=== PATIENT | female | born 1980 | race Caucasian/White ===

== ENCOUNTER 2019-05-28 10:39 | Emergency (ER) | payer SELFPAY ==
--- NOTE | ~2019-05-28 | XR_ITS ---
EXAMINATION: XR pelvis 1-2V INDICATION: Pain after fall TECHNIQUE: AP view the pelvis is obtained on two radiographs. COMPARISON: CT, 08/03/2014 FINDINGS: Bone alignment is normal. There is no fracture. There are phleboliths of the pelvis. A bone island is noted in the left iliac wing. There is degenerative change at the pubic symphysis. IMPRESSION: 1. No acute osseous abnormality. Reviewed, dictated and finalized at location B.
[2019-05-28 11:02] VITALS: BP 139/87; PULSE 87; RESP 18; O2SAT 98
--- NOTE | 2019-05-28 11:04 | ED.BACK ---
HPI - Back Pain/Injury General Chief Complaint: Back Pain/Injury Stated Complaint: Fell and hurt tail bone Time Seen by Provider: 05/28/19 11:04 Source: patient Mode of arrival: ambulatory Limitations: no limitations History of Present Illness HPI Narrative: 39-year-old woman comes in today complaining of low back and tailbone pain that started 3 days ago after she fell down some stairs while carrying boxes. Patient states that she has had pain radiating to both hips since. It is painful to sit. She also has tenderness palpation over her tailbone. She denies other injuries or loss of consciousness. She has been taking anti-inflammatories for her discomfort however she is still having a significant amount of pain. She denies numbness and weakness in her lower extremities. MD elicited complaint: back injury and fall Onset (ago): day(s) (3) Timing: constant Severity: moderate Quality: sharp and aching Location: lumbar spine and sacrum Radiation: other ( To the hips) Exacerbating factors: movement and sitting upright Relieving factors: none Context: fall Treatments prior to arrival: NSAIDS Related Data Allergies Allergy/AdvReac Type Severity Reaction Status Date / Time pseudoephedrine Allergy Intermediate HIVES Verified 02/03/15 10:36 diphenhydramine Allergy Mild Verified 02/03/15 10:36 Review of Systems Constitutional: Constitutional: Denies chills and Denies fever(s) Eyes: Eyes: Denies change in vision and Denies photophobia ENT: Denies dysphagia, Denies nasal congestion and Denies sore throat Cardiovascular: Cardiovascular: Denies chest pain and Denies radiating jaw, neck or arm pain Gastrointestinal: Gastrointestinal: Denies abdominal pain, Denies diarrhea, Denies nausea and Denies vomiting Genitourinary: Genitourinary: Denies hematuria, Denies nocturia, Denies dysuria and Denies urinary incontinence Musculoskeletal: Musculoskeletal: Reports as per HPI Integumentary/Breasts: Skin/Breast: Denies pruritus, Denies erythema and Denies rash Neurologic: Denies vertigo, Denies dizziness and Denies syncope Hematologic/Lymphatic: Hematologic/Lymphatic: Denies easy bleeding and Denies easy bruising Allergic/Immunologic: Allergic/Immunologic: Denies lip swelling and Denies wheezing PMFSH Surgical History Surgical History H/O section H/O tubal ligation Social History Social History (Updated 05/28/19 @ 12:06 by Sergo Murillo MD) Smoking status: Never smoker Alcohol intake: never Substance use: never Living arrangements: with family Gender identity (if verbalized by the patient): Female Exam Const: General: alert Nutritional Appearance: obese Orientation/consciousness: patient oriented x3 Limitations: no limitations Other: moderate acute distress. HENMT: Mouth: Yes Normal oral and palatal mucosa present and Yes moist mucous membranes Throat: posterior oropharynx normal and uvula midline Eyes: Conjunctivae: conjunctivae normal Pupils: Equal, round and reactive pupils present EOM: EOMs intact bilaterally Resp: Effort & Inspection: normal respiratory effort and not labored Auscultation: clear to auscultation bilaterally, no rales, no rhonchi and no wheezes Cardio: Rate: regular rate Rhythm: regular rhythm Heart sounds: no murmurs Back/Spine/Pelvis: Other: Tenderness palpation over the sacral spine and the tailbone. There is some bruising over the right SI joint. No abnormal contour, step-off or swelling. No tenderness over the thoracic spine, the greater trochanters, or the reanna. Skin: General skin exam: normal color, no jaundice and no pallor Rashes: no rashes Neuro: General: patient oriented x3, moves all extremities, no meningeal signs, no focal motor deficits and CN's II-XI intact bilaterally Other: 2+ DTRs at the patellar tendons bilaterally and 1+ DTRs at the calcaneal tendons bilaterally. normal distal n
[2019-05-28] MEDS: KETOROLAC (*BKC) 60 MG/2 ML VIAL IM (11:26)
[2019-05-28 12:01] VITALS: BP 127/76
--- NOTE | 2019-05-28 12:12 | PC.NURSE ---
denies numbness or tingling of extremities.
== END 2019-05-28 12:02 | disposition home or self-care (01) ==
PROVIDERS: Emergency Provider Emergency Medicine
DX: S39.012A Strain of muscle, fascia and tendon of lower back, initial encounter (principal); S39.92XA Unspecified injury of lower back, initial encounter; W10.9XXA Fall (on) (from) unspecified stairs and steps, initial encounter
CPT/HCPCS: 72170; 96372; 99283; J1885

== ENCOUNTER 2019-08-12 09:58 | Outpatient (CLI) | payer MEDICAID, SELFPAY ==
--- NOTE | ~2019-08-12 | XR_ITS ---
XR lumbar spine 2-3V 08/12/2019 11:05 Indication: Low back pain for months. Procedure: 3 views of the lumbar spine Comparison: No prior studies for comparison. Findings: Vertebral body and disc heights are preserved. No fracture or traumatic malalignment. No ev idence for spondylolysis or spondylolisthesis. Pedicles intact. Sacral foramen are symmetric. Impression: 1: No significant abnormality of the lumbar spine. Reviewed, dictated and finalized at location A. Impression: 1: No significant abnormality of the lumbar spine.
--- NOTE | ~2019-08-12 | XR_ITS ---
EXAMINATION: XR foot RT min 3V EXAM DATE: 08/12/2019 11:05 INDICATION: No known recent injury provided at this time. Pain of the right foot. TECHNIQUE: Right foot dorsoplantar, lateral and oblique projections obtained and reviewed. Compariso n is made to prior examination from 09/25/2010. FINDINGS: Right metatarsal bones unremarkable. Small posterior calcaneal spur. There is prominent b monserrat productive change at the superolateral aspect calcaneocuboid articulation, calcaneal beak suspect ed to be from underlying partial coalition. Consider this as possible etiology for patient's symptoms . There are no acute fractures or dislocations identified. There is no subcutaneous gas. The soft t issue is unremarkable. There are no radiopaque foreign bodies. IMPRESSION: 1. 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 2. Small posterior calcaneal spur. Reviewed, dictated and finalized at location A. IMPRESSION: 1. 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 2. Small posterior calcaneal spur.
--- NOTE | ~2019-08-12 | XR_ITS ---
XR_CERV2-3V_CR 08/12/2019 11:05 Indication: Neck pain Procedure: 3 views of the cervical spine Comparison: No prior studies for comparison. Findings: Straightening of cervical lordosis. Vertebral body and disc spaces are preserved. No prever tebral soft tissue swelling. Odontoid process is unremarkable. Impression: 1: No significant abnormality of the cervical spine. Reviewed, dictated and finalized at location A. Impression: 1: No significant abnormality of the cervical spine.
== END 2019-08-12 09:59 | disposition home or self-care (01) ==
PROVIDERS: PCP Nurse Practitioner Family; Visit Provider Nurse Practitioner Family
DX: M54.2 Cervicalgia (principal); M79.671 Pain in right foot; M54.6 Pain in thoracic spine; G89.29 Other chronic pain
CPT/HCPCS: 72040; 72100; 73630

== ENCOUNTER 2019-08-14 09:34 | Outpatient (CLI) | payer MEDICAID, SELFPAY ==
[2019-08-14 09:58] LABS: Add Urine Microscopic? NO; Appearance Urine Clear (Clear); Bilirubin Urine Negative (Negative); Blood Urine Negative (Negative); Color Urine Yellow (Yellow); Glucose Urine UA Negative (Negative); Ketones Urine Negative (Negative); Leukocyte Esterase Ur Negative LEU/UL (Negative); Nitrate Urine Negative (Negative); Protein Urine Negative (Negative); Specific Grav Ur 1.025 (1.010-1.020); Urobilinogen Urine 0.2 mg/dL (0.2-1.0)
[2019-08-14 10:45] LABS: Alanine Aminotransferase 16 U/L (14-59); Albumin Level 3.6 g/dL (3.4-5.0); Alkaline Phosphatase 63 U/L (46-116); Anion Gap 12.3 mmol/L (7-16); Aspartate Amino Transferase 13 U/L (15-37); Bilirubin,Total 0.3 mg/dL (0.00-1.00); Blood Urea Nitrogen 7 mg/dL (7-18); Calcium 8.8 mg/dL (8.5-10.1); Carbon Dioxide 27 mmol/L (21-32); Chloride 103 mmol/L (98-108); Cholesterol 184 mg/dL (0-200); Estimated Glomerular Filt Rate > 60; Glucose 100 mg/dL (70-99); HDL Direct 73 mg/dL (40-60); LDL Cholesterol Calculated 101 mg/dL (<130); Osmolality Calculated 284 mOsm/kg (285-295); Potassium 4.3 mmol/L (3.5-5.1); Sodium 138 mmol/L (136-145); Thyroid Stimulating Hormone 1.58 uIU/mL (0.36-3.74); Total Protein 6.8 g/dL (6.4-8.2); Triglycerides 48 mg/dL (0-150)
== END 2019-08-14 09:35 | disposition home or self-care (01) ==
PROVIDERS: PCP Nurse Practitioner Family; Visit Provider Nurse Practitioner Family
DX: Z12.4 Encounter for screening for malignant neoplasm of cervix (principal); Z13.89 Encounter for screening for other disorder; Z00.00 Encounter for general adult medical examination without abnormal findings
CPT/HCPCS: 36415; 80053; 80061; 81003; 84443; 87491; 87591; 87624; 87625; 88141; 88175; G0145

== ENCOUNTER 2019-08-14 12:48 | Outpatient (RCR) | payer MEDICAID, OTHER, SELFPAY ==
--- NOTE | 2019-08-14 15:54 | PTOPEVAL ---
Thank you for referring Heide Fan to [facility]. Please review, sign, date and return this plan of care JAKE. I agree with and certify that the following plan of care is medically necessary. Referring Physician Date Admitting Provider: Attending Provider: You Lee DO Referring Provider: *PT Outpatient Evaluation Start: 08/14/19 15:07 Freq: Status: Active Protocol: Document 08/14/19 15:08 TIM (Rec: 08/14/19 15:53 TIM [id number]) Therapy Assessment Status Assessment Status Assessment Status Evaluation Outpatient Past Medical History Reproductive History Hx Section Yes Hx Tubal Ligation Yes Evaluation Information Problem Diagnosis neck pain, back pain, and right heel pain Subjective Information Pt. reports that she developed Query Text:As Reported By Patient/ foot pain in March. she Family reports that foot pain became gradually. She states that she underwent xray which revealed a bone spur. She reports that pain is present in both sitting and standing. She states that in May she slipped and fell while carrying a box down steps. She reports she had a bruise, but xray was negative. She reports that she cannot walk for long periods not only due to foot pain but also because of back pain. She reports she does also have neck pain and stiffness. She will get occassional numbness into the u.e. She reports that her goal for therapy is to be able to move without pain. Diagnostic Tests X-Rays For This Problem Yes Prior Level of Function Activity Level (Last 3 Months) Occupation unemployed Hand Dominance Right Activity of Daily Living Ability Independent Indoor/Home Mobility Independent Community Mobility Independent Stairs Ability Independent Functional Cognition (Planning, Shopping Independent , Taking Medications) Cooking Yes Cleaning Yes Laundry Yes Shopping Yes Driving Yes Pain Assessment Pain Sca
--- NOTE | 2019-09-02 17:06 | PCPTNOTE ---
09/02/19-pt cancelled today's apt, no reason stated. HM
== END 2019-09-10 10:33 | disposition home or self-care (01) ==
LOC: CHSPT 12:48
PROVIDERS: PCP Family Medicine; Visit Provider Family Medicine
DX: M54.2 Cervicalgia (principal); M54.9 Dorsalgia, unspecified; M79.671 Pain in right foot
CPT/HCPCS: 36415; 80053; 80061; 81003; 84443; 87491; 87591; 87624; 87625; 88141; 88175; 97014; 97110; 97140; 97162; G0145; G0283

== ENCOUNTER 2019-09-09 12:20 | Outpatient (CLI) | payer OTHER, SELFPAY ==
--- NOTE | ~2019-09-09 | MM_ITS ---
EXAMINATION: MM screening kate BI w pallavi HISTORY: Screening mammogram TECHNIQUE: Craniocaudal and mediolateral oblique 3-D tomosynthesis images were obtained and synthetic 2-D images were generated. CAD analysis was submitted and interpreted. COMPARISON: No prior mammogram is available for comparison at this institution. BREAST PARENCHYMAL COMPOSITION: There are scattered areas of fibroglandular density. FINDINGS: RIGHT BREAST: There is a 5 mm mass in the posterior third of the upper outer quadrant of the breast 1 2 cm from the nipple. LEFT BREAST: There is no evidence of suspicious mass, calcification, or architectural distortion to s uggest malignancy. IMPRESSION: 1. Right breast mass which may represent the patient's baseline however no comparison is currently av ailable. 2. Comparison with prior mammograms is necessary. BI-RADS Category 0: Incomplete: Needs comparison with prior mammograms. Reviewed, dictated and finalized at location A. IMPRESSION: 1. Right breast mass which may represent the patient's baseline however no comp arison is currently available. 2. Comparison with prior mammograms is necessary. BI-RADS Category 0: Incomplete: Needs comparison with prior mammograms.
== END 2019-09-09 12:21 | disposition home or self-care (01) ==
PROVIDERS: PCP Nurse Practitioner Family; Visit Provider Nurse Practitioner Family
DX: Z12.31 Encounter for screening mammogram for malignant neoplasm of breast (principal)
CPT/HCPCS: 77063; 77067

== ENCOUNTER 2019-09-15 10:19 | Outpatient (CLI) | payer OTHER, SELFPAY ==
--- NOTE | ~2019-09-15 | MMUS_ITS ---
EXAMINATION: MM diagnostic kate RT w pallavi, US breast RT limited HISTORY: Right breast mass on screening mammogram TECHNIQUE: Additional 3-D tomosynthesis images of the right breast were performed and synthetic 2-D i mages were generated. CAD analysis was submitted and interpreted. High resolution limited right breas t ultrasound was performed. COMPARISON: 09/09/2019 FINDINGS: MAMMOGRAPHIC FINDINGS: There is a 6 mm oval, circumscribed, equal density mass in the posterior third of the upper outer whitney drant of the breast at the 10:00 location 12 cm from the nipple. No suspicious architectural distorti on or calcification are identified. ULTRASOUND: There is a 6 mm mass at the 10:00 location 4 cm from the nipple which has sonographic features of an intramammary lymph node. No suspicious cystic or solid mass is identified. IMPRESSION: 1. Intramammary lymph node in the upper outer quadrant of the right breast. No mammographic or sonogr aphic evidence of malignancy. 2. Recommend routine screening mammography in one year. BI-RADS Category 2: Benign finding(s). Reviewed, dictated and finalized at location A. IMPRESSION: 1. Intramammary lymph node in the upper outer quadrant of the right breast. No mammographic or sonographic evidence of malignancy. 2. Recommend routine screening mammography in one year. BI-RADS Category 2: Benign finding(s).
== END 2019-09-15 10:20 | disposition home or self-care (01) ==
LOC: CHSIMG 10:20
PROVIDERS: PCP Nurse Practitioner Family; Visit Provider Nurse Practitioner Family
DX: N63.10 Unspecified lump in the right breast, unspecified quadrant (principal)
CPT/HCPCS: 76642; 77061; 77065; G0279

== ENCOUNTER 2019-10-20 00:17 | Outpatient (CLI) | payer OTHER, SELFPAY ==
[2019-10-20 20:24] LABS: SARS-CoV-2 RNA PCR Negative
== END 2019-10-20 00:18 | disposition home or self-care (01) ==
LOC: ANHCOVIDDT 00:17
PROVIDERS: PCP Nurse Practitioner Family; Visit Provider Student in an Organized Health Care Education/Training Program
DX: Z01.812 Encounter for preprocedural laboratory examination (principal); Z20.828 Contact with and (suspected) exposure to other viral communicable diseases
CPT/HCPCS: 87635; C9803; U0003

== ENCOUNTER 2019-10-22 01:47 | Day surgery (SDC) | payer OTHER, SELFPAY ==
[2019-10-06 12:58] VITALS: BMI 35.9
--- NOTE | 2019-10-21 14:50 | PM.IMHP ---
H&P: HPI History of Present Illness Date/Time: 10/21/19 14:50 Chief complaint: High Grade cells with Dysplasia Narrative: Heide Fna is a 39 year old female with a history of KAZ 3 on recent pap smear. Pt was seen by PCP and had a pap on 08/14/19 that showed HGSIL, KAZ 2 and KAZ 3. Prior to this pap smear, pt states that prior pap was 4 years ago and was within normal limits. She states that pap smear was collected during hospitalization at [facility] in [place], [place]. Pt states she was hospitalized for 3 weeks for an ovarian infection, possible PID. Denies any family history of cervical, endometrial, or ovarian cancer. Maternal grandmother had breast cancer. She does smokes >1/2ppd. Discussion had with patient regarding colposcopy vs. immediate LEEP. Given high grade dysplasia on pap smear, decision made to proceed directly with excision procedure. Patient reports feeling well today. Review of Systems Review of Systems: All systems reviewed & are unremarkable except as noted in HPI and below Constitutional: Constitutional: Reports as per HPI, Reports no additional constitutional complaints, Denies chills, Denies fever(s), Denies headache(s) and Denies night sweats Eyes: Eyes: Reports as per HPI and Reports no additional eye complaints ENT: Reports system reviewed and no additional complaints, except as documented, Reports as per HPI, Reports Normal hearing present and Denies headache(s) Cardiovascular: Cardiovascular: Reports as per HPI, Reports no additional cardiovascular complaints, Denies chest pain and Denies dyspnea Respiratory: Respiratory: Reports as per HPI, Reports no additional respiratory complaints, Denies cough and Denies dyspnea Gastrointestinal: Gastrointestinal: Reports as per HPI, Reports no additional gastrointestinal complaints, Denies abdominal pain, Denies change in bowel habits, Denies change in stool character, Denies nausea and Denies vomiting Genitourinary: Genitourinary: Reports no additional female genitourinary complaints, Reports as per HPI, Denies abnormal vaginal bleeding, Denies genital lesions, Denies hot flashes, Denies dyspareunia, Denies pelvic pain, Denies sexual dysfunction, Denies urinary incontinence, Denies vaginal discharge, Denies vaginal dryness and Denies vaginal odor Musculoskeletal: Musculoskeletal: Reports no additional musculoskeletal complaints and Reports as per HPI Integumentary/Breasts: Skin/Breast: Reports system reviewed and no additional complaints, except as docu, Reports as per HPI, Denies breast pain and Denies nipple discharge Neurologic: Reports system reviewed and no additional complaints, except as documented, Reports as per HPI, Reports Normal hearing present and Denies headache(s) Psychiatric: Psychiatric: Reports no additional psychiatric complaints, Reports as per HPI, Denies anxiety and Denies depression Endocrine: Endocrine: Reports no additional endocrine complaints and Reports as per HPI Hematologic/Lymphatic: Hematologic/Lymphatic: Reports no additional hematologic/lymphatic complaints and Reports as per HPI Allergic/Immunologic: Allergic/Immunologic: Reports no additional allergic/immunologic complaints and Reports as per HPI PMFSH Surgical History Surgical History H/O section H/O tubal ligation Family History Family History Mother Breast cancer COPD (chronic obstructive pulmonary disease) Diabetes mellitus Cerebrovascular accident Father Chronic back pain Hypertension High cholesterol Social History Social History Smoking packs per day: 0.5 Smoking cigarettes per day: 10.0 Years smoked: 20 Smoking pack-years: 10.00 Smoking status: Current every day smoker Tobacco type: cigarettes Alcohol intake: current Drinks per week: 2 Substance use: current Substance use
[2019-10-22] MEDS: LACTATED RINGERS 1,000 ML 30 ML IV CONT (08:39)
[2019-10-22] MEDS: ACETAMINOPHEN 500 MG TABLET 1000 MG PO (08:40)
--- NOTE | 2019-10-22 08:58 | WPDHPUPDATE1 ---
History and Physical Update Update Date/Time: 10/22/19 08:58 History and Physical has been reviewed, including an updated exam of the patient. There are NO changes in the patient's condition. Risks, benefits, and alternatives have been discussed and questions answered. Patient agrees to proceed with procedure.
[2019-10-22 09:14] VITALS: BP 137/82; PULSE 95; RESP 16; TEMP 37.4; O2SAT 97
--- NOTE | 2019-10-22 09:28 | WPDANESEPPF ---
Anes - Initial Pre Proc Eval Procedure: Operation Date: 10/22/19 10:00 Proposed Procedures p Loop Electrical Excision Procedure - Maya Urena MD Date/Time: 10/22/19 09:28 Surgeon: Maya Urena MD Pre Op Diagnosis: High Grade cells with Dysplasia Patient Data Age: 39 Gender: F Height: 5 ft 10 in Weight: 123.3 kg Last Vital Signs Temp 99.4 F 10/22/19 09:14 Pulse 95 10/22/19 09:14 Resp 16 10/22/19 09:14 BP 137/82 10/22/19 09:14 Pulse Ox 97 10/22/19 09:14 Allergies Allergy/AdvReac Type Severity Reaction Status Date / Time latex Allergy Severe Swelling Verified 10/22/19 08:25 pseudoephedrine Allergy Intermediate HIVES Verified 10/22/19 08:25 diphenhydramine Allergy Mild Hives Verified 10/22/19 08:25 Home Medications Medication Instructions Recorded Confirmed Type bupropion HCl 150 mg 24 hr tablet, 150 mg PO QAM 09/24/19 10/22/19 History extended release cyclobenzaprine 10 mg PO HS PRN 10/06/19 10/22/19 History diclofenac sodium 50 mg 50 mg PO TID PRN #45 tablet 10/08/19 10/22/19 Rx tablet,delayed release famotidine 20 mg tablet 20 mg PO BID #60 tablet 10/08/19 10/22/19 Rx Patient hx anesthesia problems: none Family hx anesthesia problems: none PMFSH Surgical History Surgical History H/O section H/O tubal ligation Family History Family History Mother Breast cancer COPD (chronic obstructive pulmonary disease) Diabetes mellitus Cerebrovascular accident Father Chronic back pain Hypertension High cholesterol Social History Social History Smoking packs per day: 1 Smoking cigarettes per day: 20.0 Years smoked: 20 Smoking pack-years: 20.00 Smoking status: Current every day smoker Tobacco type: cigarettes Alcohol intake: current Drinks per week: 1 Substance use: current Substance use type: marijuana Last use: 09/06/19 Gender identity (if verbalized by the patient): Female Spiritual care concerns: No Anes - Eval Final PreProcedure Day of Procedure 10/22/19 09:28 Patient weight: morbidly obese Heart: regular rate and rhythm Lungs: clear to auscultation Airway: Mallampati scale class II Neurological: alert and oriented Last oral intake: >/= 8 hours ASA classification: III Emergent: no Anesthetic plan: proceed Anesthesia type and monitoring: general GIVS and standard monitoring Informed Consent: The patient's anesthetic plan and its attendant risks and benefits were discussed with the patient/family/POA. Questions were solicited and answers provided to the satisfaction of the patient/family/POA.
--- NOTE | 2019-10-22 10:16 | PM.PROC ---
Procedure Note - Detailed Date of procedure: 10/22/19 Pre-op diagnosis: High Grade cells with Dysplasia Post-op diagnosis: same Procedure performed: Loop electrosurgical excision procedure Description of procedure: The patient was taken to the operating room where she self-transferred to the operating room table. She was placed in dorsal supine position. Anesthesia was administered and found to be adequate. The patient was repositioned in dorsal lithotomy position and prepped and draped in the usual sterile fashion. A coated bivalve speculum was inserted into the vagina and suction tubing was connected to the speculum. The cervix was well visualized. A paracervical block was performed with 1% lidocaine. 5 cc of lidocaine was administered on both sides for a total of 10 cc. Lugol's solution was applied across the entire surface of the cervix. A wide area of non uptake was noted circumferentially around the cervix. A wide loop was selected and connected to the electrical generator. This loop was used to excise a portion of the anterior surface of the cervix, including the cervical os. The specimen was removed and set aside. The loop was then used to excise the posterior surface of the cervix. Specimen was also set aside. An endocervical curettage was also performed. A rollerball was used to cauterize the entire excision site and margins of the excision bed. Excellent hemostasis was noted. The procedure was deemed complete. The vagina was dried and the speculum was removed. The anterior portion of the cervix was tagged at 12:00 with a suture and the posterior portion was tagged at 6:00. Specimen were prepared to be sent to pathology for analysis. The patient was cleansed and dried. She was taken out of the dorsal lithotomy position and awakened from anesthesia without difficulty. She was transported to the recovery room in stable condition. All sponge and instrument counts were correct at the end of the procedure. Anesthesia: MAC Surgeon: Maya Urena MD Estimated blood loss (mL): 5 IV fluids (mL): 600 Drains: No Packing: No Pathology: yes (portion of anterior cervix (stitch at 12:00), portion of posterior cervix (stitch at 6:00), endocervical curettings ) Complications: No immediate complications Condition: stable Disposition: same day Findings: Intraoperative findings: wide area of nonuptake noted circumferentially around cervix
[2019-10-22 10:20] VITALS: BP 87/51; PULSE 71; RESP 16; O2SAT 95
[2019-10-22 10:40] VITALS: BP 126/71; PULSE 77; RESP 16; O2SAT 97
[2019-10-22 11:00] VITALS: BP 117/76; PULSE 74; RESP 16
== END 2019-10-22 11:10 | disposition home or self-care (01) ==
PROVIDERS: PCP Nurse Practitioner Family; Visit Provider Student in an Organized Health Care Education/Training Program
PROC: 0UBC7ZZ Excision of Cervix, Via Natural or Artificial Opening (ICD-10-PCS; CPT 57522; principal; 2019-10-22 10:00)
DX: D06.0 Carcinoma in situ of endocervix (principal); N72 Inflammatory disease of cervix uteri; F17.210 Nicotine dependence, cigarettes, uncomplicated; F12.90 Cannabis use, unspecified, uncomplicated
CPT/HCPCS: 57522; 88305; 88307; A9270; J2250; J2704; J3010; J7120

== ENCOUNTER 2020-02-02 12:45 | Outpatient (CLI) | payer OTHER, SELFPAY | END 2020-02-02 12:46 | disposition home or self-care (01) | LOC: ANHSURGERY 12:47 | PROVIDERS: PCP Nurse Practitioner Family; Visit Provider Student in an Organized Health Care Education/Training Program | DX: Z01.812 Encounter for preprocedural laboratory examination (principal); D06.9 Carcinoma in situ of cervix, unspecified | CPT/HCPCS: 36415; 86850; 86900; 86901 ==

== ENCOUNTER 2020-02-06 02:04 | Outpatient (CLI) | payer OTHER, SELFPAY ==
[2020-02-06 19:10] LABS: SARS-CoV-2 RNA PCR Negative
== END 2020-02-06 02:05 | disposition home or self-care (01) ==
LOC: ANHCOVIDDT 02:04
PROVIDERS: PCP Nurse Practitioner Family; Visit Provider Student in an Organized Health Care Education/Training Program
DX: Z01.812 Encounter for preprocedural laboratory examination (principal); Z20.828 Contact with and (suspected) exposure to other viral communicable diseases
CPT/HCPCS: 87635; C9803; U0003

== ENCOUNTER 2020-02-09 00:53 | Day surgery (SDC) | payer OTHER, SELFPAY ==
[2020-01-27 09:27] VITALS: BMI 35.9
[2020-02-09] VITALS (14 sets, daily range): BP systolic 92–132; BP diastolic 60–84; PULSE 51–88; RESP 12–18; TEMP 36.4–36.6; O2SAT 93–100
--- NOTE | 2020-02-09 07:16 | WPDANESEPPF ---
Anes - Initial Pre Proc Eval Procedure: Operation Date: 02/09/20 13:00 Proposed Procedures p Laparoscopic Assisted Vaginal Hysterectomy with Bilateral Salpingectomy - Maya Urena MD Date/Time: 02/09/20 07:16 Surgeon: Maya Urena MD Pre Op Diagnosis: KAZ 3 Patient Data Age: 39 Gender: F Height: 1.78 m Weight: 113.5 kg Allergies Allergy/AdvReac Type Severity Reaction Status Date / Time latex Allergy Severe Swelling Verified 02/09/20 11:20 pseudoephedrine Allergy Intermediate HIVES Verified 02/09/20 11:20 diphenhydramine Allergy Mild Hives Verified 02/09/20 11:20 Home Medications Medication Instructions Recorded Confirmed Type No Home Medications 01/28/20 02/09/20 History Patient hx anesthesia problems: none Family hx anesthesia problems: none PMFSH Past Medical History Medical History (Updated 02/09/20 @ 07:17 by Freddie Horta MD) Acid reflux Anxiety Chronic back pain Depression Nicotine dependence, cigarettes, uncomplicated Obesity Ovarian cyst, right 2015 Pain of right heel Surgical History Surgical History H/O section H/O tubal ligation Family History Family History Mother Breast cancer COPD (chronic obstructive pulmonary disease) Diabetes mellitus Cerebrovascular accident Father Chronic back pain Hypertension High cholesterol Social History Social History Smoking packs per day: 1 Smoking cigarettes per day: 20.0 Years smoked: 20 Smoking pack-years: 20.00 Smoking status: Current every day smoker Tobacco type: cigarettes Alcohol intake: current Drinks per week: 1 Substance use: current Substance use type: marijuana Last use: 09/06/19 Gender identity (if verbalized by the patient): Female Spiritual care concerns: No Anes - Eval Final PreProcedure Day of Procedure 02/09/20 07:16 Patient weight: obese Heart: regular rate and rhythm Lungs: clear to auscultation and normal air movement Airway: Mallampati scale class II Neurological: alert and oriented Last oral intake: >/= 8 hours ASA classification: III Emergent: no Anesthetic plan: proceed Anesthesia type and monitoring: general ETT Informed Consent: The patient's anesthetic plan and its attendant risks and benefits were discussed with the patient/family/POA. Questions were solicited and answers provided to the satisfaction of the patient/family/POA.
[2020-02-09] MEDS: LACTATED RINGERS 1,000 ML 30 ML IV CONT ×2 (11:48→17:17)
[2020-02-09] MEDS: ACETAMINOPHEN 500 MG TABLET 1000 MG PO (11:49)
[2020-02-09] MEDS: KETOROLAC 15 MG/ML VIAL (*BKC) IV PUSH (11:50)
--- NOTE | 2020-02-09 12:25 | PM.IMHP ---
H&P: HPI History of Present Illness Date/Time: 02/09/20 12:25 Patient is a 39 year old woman with a history of high grade cervical dysplasia. She is s/p LEEP on 10/22/19. Pathology results showed positive endocervical margins and ECC also showed KAZ 3. Discussion had with patient regarding further management options, including more frequent surveillance and possible reexcision vs. definitive management with a hysterectomy. Patient declines surveillance and desires definitive management. She has had a BTL in the past and does not desire future fertility. Patient reports feeling well today without complaints. Chief complaint: KAZ 3 Narrative: Heide Fan is a 39 year old female Review of Systems Review of Systems: All systems reviewed & are unremarkable except as noted in HPI and below Constitutional: Constitutional: Reports as per HPI, Reports no additional constitutional complaints, Denies chills, Denies fever(s), Denies headache(s) and Denies night sweats Eyes: Eyes: Reports as per HPI and Reports no additional eye complaints ENT: Reports system reviewed and no additional complaints, except as documented, Reports as per HPI, Reports Normal hearing present and Denies headache(s) Cardiovascular: Cardiovascular: Reports as per HPI, Reports no additional cardiovascular complaints, Denies chest pain and Denies dyspnea Respiratory: Respiratory: Reports as per HPI, Reports no additional respiratory complaints, Denies cough and Denies dyspnea Gastrointestinal: Gastrointestinal: Reports as per HPI, Reports no additional gastrointestinal complaints, Denies abdominal pain, Denies change in bowel habits, Denies change in stool character, Denies nausea and Denies vomiting Genitourinary: Genitourinary: Reports no additional female genitourinary complaints, Reports as per HPI, Denies abnormal vaginal bleeding, Denies genital lesions, Denies hot flashes, Denies dyspareunia, Denies pelvic pain, Denies sexual dysfunction, Denies urinary incontinence, Denies vaginal discharge, Denies vaginal dryness and Denies vaginal odor Musculoskeletal: Musculoskeletal: Reports no additional musculoskeletal complaints and Reports as per HPI Integumentary/Breasts: Skin/Breast: Reports system reviewed and no additional complaints, except as docu, Reports as per HPI, Denies breast pain and Denies nipple discharge Neurologic: Reports system reviewed and no additional complaints, except as documented, Reports as per HPI, Reports Normal hearing present and Denies headache(s) Psychiatric: Psychiatric: Reports no additional psychiatric complaints, Reports as per HPI, Denies anxiety and Denies depression Endocrine: Endocrine: Reports no additional endocrine complaints and Reports as per HPI Hematologic/Lymphatic: Hematologic/Lymphatic: Reports no additional hematologic/lymphatic complaints and Reports as per HPI Allergic/Immunologic: Allergic/Immunologic: Reports no additional allergic/immunologic complaints and Reports as per HPI PMF Past Medical History Medical History Acid reflux Anxiety Chronic back pain Depression Nicotine dependence, cigarettes, uncomplicated Obesity Ovarian cyst, right 2015 Pain of right heel Surgical History Surgical History H/O section H/O tubal ligation Family History Family History Mother Breast cancer COPD (chronic obstructive pulmonary disease) Diabetes mellitus Cerebrovascular accident Father Chronic back pain Hypertension High cholesterol Social History Social History Smoking packs per day: 1 Smoking cigarettes per day: 20.0 Years smoked: 20 Smoking pack-years: 20.00 Smoking status: Current every day smoker Tobacco type: cigarettes Alcohol intake: current Drinks per week: 1 Substance us
--- NOTE | 2020-02-09 12:49 | WPDHPUPDATE1 ---
History and Physical Update Update Date/Time: 02/09/20 12:49 History and Physical has been reviewed, including an updated exam of the patient. There are NO changes in the patient's condition. Risks, benefits, and alternatives have been discussed and questions answered. Patient agrees to proceed with procedure. Plan is for a laparoscopic assisted vaginal hysterectomy and bilateral salpingectomy.
--- NOTE | 2020-02-09 12:51 | SUR.PREOP ---
Discussed delay with patient. Voices understanding. No needs at present.
[2020-02-09] MEDS: ceFAZolin 3 GM/D5W 100 ML 100 ML IVPB (13:41)
[2020-02-09] MEDS: BACITRACIN OINTMENT 15 GM TUBE 1 APPLIC TOPICAL (16:24)
[2020-02-09] MEDS: VASOPRESSIN INJ 20 UNITS/ML VIAL SUB-Q (16:24)
--- NOTE | 2020-02-09 17:21 | PM.PROC ---
Procedure Note - Detailed Date of procedure: 02/09/20 Pre-op diagnosis: KAZ 3 Post-op diagnosis: same Procedure performed: Laparoscopic assisted vaginal hysterectomy, bilateral salpingectomy, cystoscopy Description of procedure: The patient was taken to the operating room, where she self-transferred to the operating room table. She was placed in dorsal supine position. General anesthesia was administered and found to be adequate. The patient was repositioned in dorsal lithotomy position with the use of Ronny stirrups and arms were carefully tucked at her side. She was prepped and draped in the usual sterile fashion. A Cazares catheter was inserted using sterile technique and a minimal amount of concentrated urine was noted. A weighted speculum was inserted into the vagina. A right angle retractor was used to visualize the cervix. The cervix was well visualized and the anterior lip of the cervix was grasped with a single-tooth tenaculum. The cervix was serially dilated to accommodate the insertion of a HUMI uterine manipulator, which was inserted into the uterus for use during the laparoscopic portion of the case. The tenaculum, weighted speculum, and right angle retractor were removed. Business Continuity Director's gloves were changed. Attention was then turned to the patient's abdomen. A small amount of Exparel was injected along the fascia for postoperative pain management in the infraumbilical region. A small infraumbilical skin incision was made with a scalpel. While tenting the abdominal wall, a Veress needle was inserted into the abdominal cavity. Intra-abdominal confirmation was made with saline. Carbon dioxide tubing was connected to the Veress needle and insufflation was begun. The abdomen was insufflated to 15 mmHg. Once adequate pneumoperitoneum was achieved, the Veress needle was removed and a 5 mm Optiview trocar was then inserted into the abdominal cavity under direct visualization with the laparoscope. The trocar was removed. The laparoscope was introduced into the abdominal cavity through the sheath. The patient was placed in Trendelenburg position and a general survey was performed. An omental adhesion to the anterior abdominal wall was noted and visualization of the pelvic structures were obscured. For enhanced visualization and completion of the procedure, decision was made to place two 5mm accessory trocars, one in the left lower quadrant and one in the right lower quadrant. A small amount of Exparel was injected along the fascia in the right lower quadrant. A small skin incision was made with a scalpel and a 5 mm trocar was placed under direct visualization. Similarly, Exparel was injected in the left lower quadrant, a small skin incision was made, and an additional 5 mm trocar was placed under direct visualization. With the use of Endo Michelle and an atraumatic grasper, the filmy omental adhesions were cauterized and transected, completely freeing and detaching the omentum from the anterior abdominal wall. This allowed good visualization of pelvic structures and a quick survey of the pelvic cavity was completed. The uterus appeared normal with no gross abnormalities visualized. The ovaries appeared normal bilaterally as did the fallopian tubes. The fallopian tubes, however, were interrupted from a previous sterilization procedure. The anterior and posterior cul-de-sacs also appeared clean without evidence of significant scarring or adhesions. The ureters were well visualized bilaterally. With the use of the LigaSure bipolar cautery and transection device, the left round ligament was identified, grasped, cauterized, and transected. With careful dissection using the LigaSure device, the anterior leaf of the broad ligament was transected toward the midline, beginning the creation of the bladder flap. The left utero-ovarian ligament was then cauterized and transected to separate the left ovary and remnant of fallopian tube from the uterus. The remainder of the p
[2020-02-09] MEDS: fentaNYL CITRATE INJ (*CRX) 100 MCG/2 ML VIAL 25 MCG IV PUSH ×8 (17:35→18:10)
[2020-02-09] MEDS: LACTATED RINGERS 1,000 ML 150 ML IV CONT (19:21)
[2020-02-09] MEDS: IBUPROFEN IV 800 MG/200 ML 800 MG/200 ML BAG 400 MG IVPB (19:22)
[2020-02-09] MEDS: HYDROcodone/acetaminophen (*CRX) 10-325 MG TABLET 1 TAB PO (20:31)
--- NOTE | 2020-02-09 20:42 | PC.NURSE ---
Patient transferred to post room # 280 via bed. Oriented to unit, room, information board, and patient safety. Patient verbalizes understanding.
[2020-02-10 00:40] VITALS: BP 99/58; PULSE 65; RESP 16; TEMP 36.9; O2SAT 95
[2020-02-10] MEDS: HYDROcodone/acetaminophen (*CRX) 10-325 MG TABLET 1 TAB PO ×4 (00:40→13:38)
[2020-02-10] MEDS: IBUPROFEN IV 800 MG/200 ML 800 MG/200 ML BAG 400 MG IVPB (00:40)
[2020-02-10 03:50] VITALS: BP 91/50; PULSE 58; RESP 16; TEMP 36.6; O2SAT 96
[2020-02-10 04:13] LABS: Basophils Percent Auto 0.4 % (0.2-1.2); Eosinophils Percent Auto 0.1 % (0-4.4); Hemoglobin 10.7 g/dL (12.0-15.0); Immature Granulocyte Absolute 0.04 K/mm3 (0.00-0.031); Immature Granulocyte Percent A 0.4 % (0-0.5); Lymphocytes Absolute Auto 1.55 K/mm3 (0.9-3.2); Lymphocytes Percent Auto 15.2 % (18.3-44.2); Mean Corpuscular HGB Conc 34.5 g/dl (32-36); Mean Corpuscular Hemoglobin 30.7 pg (26-34); Mean Corpuscular Volume 89.1 fl (80-100); Mean Platelet Volume 9.9 fl (7.4-10.4); Monocytes Absolute Auto 0.7 K/mm3 (0.1-0.6); Monocytes Percent Auto 6.8 % (2.6-8.5); Neutrophils Absolute Auto 7.8 K/mm3 (1.3-6.7); Neutrophils Percent Auto 77.1 % (45.5-73.1); Platelet Count Result 282 k/mm3 (150-375); Red Blood Count 3.48 M/mm3 (4.2-5.4); Red Cell Distribution Width 13.7 % (11.5-14.5); White Blood Count 10.2 K/mm3 (4.5-10.0)
[2020-02-10 07:50] VITALS: BP 93/41; PULSE 65; RESP 16; TEMP 37; O2SAT 97
--- NOTE | 2020-02-10 07:51 | WPDANESPN ---
Anes - Prog Note Post-Op Date/Time: 02/10/20 07:51 Cardiovascular status: normal Respiratory status: normal Airway patency: baseline Mental status: baseline Post-Op hydration status: normal Vital Signs: Last Vital Signs Temp 36.6 C 02/10/20 03:50 Pulse 58 L 02/10/20 03:50 Resp 16 02/10/20 03:50 BP 91/50 L 02/10/20 03:50 Pulse Ox 96 02/10/20 03:50 Pain Score (VAS): 2 I/O: Intake & Output 02/09/20 02/09/20 02/10/20 15:59 23:59 07:59 Intake Total 600 1125 Output Total 100 1225 Balance 500 -100 Laboratory Tests 02/10/20 03:59 02/10/20 03:59 WBC 10.2 H RBC 3.48 L Hgb 10.7 L Hct 31.0 L MCV 89.1 MCH 30.7 MCHC 34.5 RDW 13.7 Plt Count 282 MPV 9.9 Immature Gran % (Auto) 0.4 Neut % (Auto) 77.1 H Lymph % (Auto) 15.2 L [place] % (Auto) 6.8 Eos % (Auto) 0.1 Baso % (Auto) 0.4 Lymph # (Auto) 1.55 [place] # (Auto) 0.7 H Eos # (Auto) 0.0 Baso # (Auto) 0.0 Abs Immat Gran (auto) 0.04 H Absolute Neuts (auto) 7.8 H Absolute Nucleated RBC 0.0 Nucleated RBC % 0.0 Post-procedural complaints: none Patient Feedback: Patient satisfied with anesthetic care.
--- NOTE | 2020-02-10 08:39 | PM.GYNPNOP ---
WORD PROCESSOR TECHNICIAN - A/P Assessment and plan (1) S/P laparoscopic assisted vaginal hysterectomy (LAVH): Code(s): Z90.710 - Acquired absence of both cervix and uterus Status: Acute Assessment and Plan: POD#1 s/p LAVH and b/l salpingectomy doing well will ensure adequate pain management with PO pain medication voiding trial anticipate dc home this afternoon Postoperative Procedures: Procedures Operation Date: 02/09/20 13:00 Actual Procedures Side Surgeon p Laparoscopic Assisted Vaginal Hysterectomy with Bilateral Salpingectomy, Cystoscopy Maya Urena MD Time Spent With Patient Time: Total time spent is greater than 50% in coordination of care (as documented) at patient's floor/unit and/or counseling patient: Time with patient: less than 15 minutes WORD PROCESSOR TECHNICIAN- PN:Subj Post-Op Subjective Date/time seen: 02/10/20 08:39 Patient doing well this AM. Reports moderate pain overnight that improved once she was able to change sleeping positions. Denies any headache, chest pain, SOB, N/V. Tolerating PO diet. Catheter recently removed. Has not yet voided. Vaginal packing removed. No bleeding. Ambulating without difficulty. Review of Systems Review of Systems: All systems reviewed & are unremarkable except as noted in HPI and below Constitutional: Constitutional: Reports as per HPI, Reports no additional constitutional complaints, Denies chills, Denies fever(s), Denies headache(s) and Denies night sweats Eyes: Eyes: Reports as per HPI and Reports no additional eye complaints ENT: Reports system reviewed and no additional complaints, except as documented, Reports as per HPI, Reports Normal hearing present and Denies headache(s) Cardiovascular: Cardiovascular: Reports as per HPI, Reports no additional cardiovascular complaints, Denies chest pain and Denies dyspnea Respiratory: Respiratory: Reports as per HPI, Reports no additional respiratory complaints, Denies cough and Denies dyspnea Gastrointestinal: Gastrointestinal: Reports as per HPI, Reports no additional gastrointestinal complaints, Denies abdominal pain, Denies change in bowel habits, Denies change in stool character, Denies nausea and Denies vomiting Genitourinary: Genitourinary: Reports no additional female genitourinary complaints, Reports as per HPI, Denies abnormal vaginal bleeding, Denies genital lesions, Denies hot flashes, Denies dyspareunia, Denies pelvic pain, Denies sexual dysfunction, Denies urinary incontinence, Denies vaginal discharge, Denies vaginal dryness and Denies vaginal odor Musculoskeletal: Musculoskeletal: Reports no additional musculoskeletal complaints and Reports as per HPI Integumentary/Breasts: Skin/Breast: Reports system reviewed and no additional complaints, except as docu, Reports as per HPI, Denies breast pain and Denies nipple discharge Neurologic: Reports system reviewed and no additional complaints, except as documented, Reports as per HPI, Reports Normal hearing present and Denies headache(s) Psychiatric: Psychiatric: Reports no additional psychiatric complaints, Reports as per HPI, Denies anxiety and Denies depression Endocrine: Endocrine: Reports no additional endocrine complaints and Reports as per HPI Hematologic/Lymphatic: Hematologic/Lymphatic: Reports no additional hematologic/lymphatic complaints and Reports as per HPI Allergic/Immunologic: Allergic/Immunologic: Reports no additional allergic/immunologic complaints and Reports as per HPI Exam Const: General: cooperative, healthy appearing, comfortable and no acute distress GI: Inspection: normal to inspection and other (wide area of ecchymosis noted around RLQ incision site) GI Palp: Yes Soft to palpation and Yes Tenderness to palpation present (GI) (appropriately tender near incisions) : Other: deferred Extrem: Right lower extremity: no edema Left lower extremity: no edema Other: no calf tenderness WORD PROCESSOR TECHNICIAN - PN: Obj Data Vital Signs Vital Signs: Vital Signs - 24 hr 02/08
[2020-02-10 12:55] VITALS: BP 90/56; PULSE 70; RESP 18; TEMP 36.9; O2SAT 98
--- NOTE | 2020-02-10 13:22 | PM.DS ---
DS: Admitting Diagnosis Admitting Diagnosis Admitting Diagnosis: KAZ 3 DS: Summary Time Spent with Patient Time attestation: Total time spent providing and/or coordinating discharge services: DS: Data Data Completed and Pending Pending studies at discharge: Pending at discharge 02/09/20 16:27 Surgical [PTH] Routine Labs on day of discharge: Labs from last 24 hours 02/10/20 03:59 WBC 10.2 H RBC 3.48 L Hgb 10.7 L Hct 31.0 L MCV 89.1 MCH 30.7 MCHC 34.5 RDW 13.7 Plt Count 282 MPV 9.9 Immature Gran % (Auto) 0.4 Neut % (Auto) 77.1 H Lymph % (Auto) 15.2 L [place] % (Auto) 6.8 Eos % (Auto) 0.1 Baso % (Auto) 0.4 Lymph # (Auto) 1.55 [place] # (Auto) 0.7 H Eos # (Auto) 0.0 Baso # (Auto) 0.0 Abs Immat Gran (auto) 0.04 H Absolute Neuts (auto) 7.8 H Absolute Nucleated RBC 0.0 Nucleated RBC % 0.0 Discharge Plan Discharge Patient Disposition: Home, Self-Care Discharge Instructions: Call office ([phone]) to schedule the following appointments: 1. Postoperative/wound check in 2 weeks. 2. Postoperative visit in 4-6 weeks. You may take Ibuprofen 600mg every 6 hours as needed for pain. I have sent a prescription for a stronger pain medication, Moira, to your pharmacy. You may take this as prescribed for breakthrough pain (pain that is not controlled with Ibuprofen). No driving for at least two weeks. You also may not drive while taking narcotics. Pain medication may make you constipated. It may be helpful to take an [id number] stool softener, such as Colace and/or Senokot, along with the pain medication to help lessen constipation. Call office or go to ED for pain not controlled with medication, headache, chest pain, shortness of breath, fever, chills, persistent nausea or vomiting, severe abdominal pain, heavy vaginal bleeding >2 pads/hour, foul vaginal discharge or odor, any redness near incision, severe pain, pus or drainage from incision site, or problems with your breasts. Follow-up/Referrals: Maya Urena MD [Physician] - Discharge Medications: No Action No Home Medications RF: 0
== END 2020-02-10 13:49 | disposition home or self-care (01) ==
LOC: ANHSURGERY 18:47 → ANHOB2 18:47
PROVIDERS: PCP Nurse Practitioner Family; Visit Provider Student in an Organized Health Care Education/Training Program
PROC: 0UT9FZZ Resection of Uterus, Via Natural or Artificial Opening With Percutaneous Endoscopic Assistance (ICD-10-PCS; CPT 58552; principal; 2020-02-09 13:00)
DX: D06.9 Carcinoma in situ of cervix, unspecified (principal); D25.0 Submucous leiomyoma of uterus; D25.2 Subserosal leiomyoma of uterus; N80.0 Endometriosis of uterus; E66.9 Obesity, unspecified; Z68.39 Body mass index [BMI] 39.0-39.9, adult; F17.210 Nicotine dependence, cigarettes, uncomplicated
CPT/HCPCS: 58552; 36415; 85025; 88307; 99199; A9270; C9290; J0690; J1100; J1170; J1741; J1885; J2250; J2405; J2704; J2710; J3010; J7030; J7120; Q9968